=== PATIENT | female | born 1950 | race African-American/Black ===

== ENCOUNTER → 2017-01-05 | Outpatient (CLI) | payer OTHER ==
[~2017-01-05] MED LIST: ALLERGY RELIEF10 M5 PO; AMLODIPINE BESY10 MG PO; ASPIR 8181 MG PO; ATIVAN0.5 MG PO; CALCIUM 500 +1 EAC5 PO; IRON325 PO; PRAVACHOL40 MG PO; PROTONIX40 M4 PO; TRAZODONE 150150 M1 PO
--- NOTE | ~2017-01-05 | 2DMMODE ---
[facility] [place] [employer] [place] [address] 2 D/M-MODE ECHOCARDIOGRAM Name: BONNIE CREWSOD Room #: REG [facility]#: [id number] Admission: 01/05/17 Attend Phys: Issac Layton MD Discharge: Date of : 46 Date of Service: 01/05/17 1543 Report #: [id number] THIS REPORT FOR: //name// APPROVED REPORT EXAM: Comprehensive 2D, Doppler, and color-flow Echocardiogram Patient Location: Out-Patient Blood Pressure: 160/88 mmHg HR: 64 bpm Other Information Study Quality: Adequate Indications Hypertension/HDD PPM. 2D Dimensions RVDd: 35.33 mm LVEF(%): 50.84 (>50%) IVSd: 13.50 (7-11mm) LVOT Diam: 16.79 (18-24mm) LVDd: 40.30 mm PWd: 13.31 (7-11mm) Ascending Aorta: 26.59 mm LVDs: 30.01 (25-40mm) IVC: 16.00 mm Aortic Root: 25.00 mm Morton's LVEF: 50.84 % Volumes Left Atrial Volume (Systole) Single Plane 4CH: 56.70 mL Single Plane 2CH: 38.77 mL LA ESV Index: 28.00 mL/m2 Aortic Valve AoV Peak Hossein.: 1.19 m/s AO Peak Gr.: 5.65 mmHg LV Max P.32 mmHg LV Max: 1.04 m/s Mitral Valve MV PHT: 79.93 ms MV E Max Hossein.: 0.46 m/s E/A Ratio: 0.5 MV A Hossein.: 0.91 m/s MV Decel. Time: 275.63 ms Pulmonary Valve [facility] [address] [address] 2 D/M-MODE ECHOCARDIOGRAM Name: BONNIE CREWS [place] Room #: REG [facility]#: [id number] Admission: 01/05/17 Attend Phys: Issac Layton MD Discharge: Date of : 46 Date of Service: 01/05/17 1543 Report #: [id number] PV Peak Hossein.: 1.11 m/s PV Peak Gr.: 4.94 mmHg Tricuspid Valve RAP Estimate: 5.00 mmHg Left Ventricle The left ventricle is normal size. There is normal LV segmental wall motion. There is normal left ventricular wall thickness. Left ventricular systolic function is normal. LVEF is 55-60%. Grade I - abnormal relaxation pattern. Right Ventricle The right ventricle is normal size. The right ventricular systolic function is normal. Atria The left atrium size is normal. The right atrium size is normal. Aortic Valve The aortic valve is normal in structure. No aortic regurgitation is present. There is no aortic valvular stenosis. Mitral Valve The mitral valve is normal in structure. There is no mitral valve regurgitation noted. Tricuspid Valve The tricuspid valve is normal in structure. There is no tricuspid valve regurgitation noted. Pulmonic Valve The pulmonary valve is normal in structure. There is no pulmonic valvular regurgitation. Great Vessels The aortic root is normal in size. IVC is normal in size and collapses >50% with inspiration. Pericardium There is no pericardial effusion. <Conclusion> The left ventricle is normal size. Left ventricular systolic function is normal. The right ventricle is normal size. [facility] [address] [employer] [place] [address] 2 D/M-MODE ECHOCARDIOGRAM Name: CREWSBONNIE [place] [id number] Admission: 01/05/17 Attend Phys: Issac Layton MD Discharge: Date of : 46 Date of Service: 01/05/171542 Report #: [id number] The left atrium size is normal. The aortic valve is normal in structure. The mitral valve is normal in structure. There is no pericardial effusion. <ELECTRONICALLY SIGNED> By: Issac Layton MD 01/05/17 1543 42 42 Issac Layton MD /INF
== END ==
LOC: CV 08:25
DX: I10 Essential (primary) hypertension (principal); Z95.0 Presence of cardiac pacemaker

== ENCOUNTER → 2019-03-14 | Outpatient (CLI) | payer OTHER ==
[~2019-03-14] MED LIST changes: +BELVIQ10 MG PO; +COZAAR 50 MG TA50 M2 PO
--- NOTE | 2019-03-14 15:36 | 2DMMODE ---
[facility] [employer] [place] [address] 2 D/M-MODE ECHOCARDIOGRAM Name: BONNIE CREWSOD Room #: REG [facility]#: [id number] ������������� Admission: 03/14/19 ������������� Attend Phys: Issac Layton MD Discharge: ��� ������������� ��� Date of : 46 Date of Service: 03/14/19 1535 �� Report #: [id number] �������� ��������������������������������������������[id number] THIS REPORT FOR: //name// APPROVED REPORT Study performed: 03/14/2019 15:02:54 EXAM: Comprehensive 2D, Doppler, and color-flow Echocardiogram Patient Location: Out-Patient Status: routine BSA: 1.87 HR: 61 bpm BP: 110/64 mmHg Rhythm: NSR Other Information Study Quality: Adequate Indications CAD Hx: Stent, PPM, HTN. 2D Dimensions RVDd: 36.60 mm IVSd: 12.45 (7-11mm) LVOT Diam: 19.46 (18-24mm) LVDd: 35.51 mm PWd: 11.39 (7-11mm) Ascending Ao: 31.01 (22-36mm) LVDs: 22.99 (25-40mm) Aortic Root: 27.07 mm Volumes Left Atrial Volume (Systole) Single Plane 4CH: 28.97 mL Single Plane 2CH: 26.98 mL LA ESV Index: 17.00 mL/m2 Aortic Valve AoV Peak Hossein.: 1.22 m/s AO Peak Gr.: 5.99 mmHg LVOT Max P.07 mmHg LVOT Max V: 1.01 m/s EV Vmax: 2.45 cm2 Mitral Valve E/A Ratio: 0.7 MV Decel. Time: 260.02 ms [facility] [address] [place] [address] 2 D/M-MODE ECHOCARDIOGRAM Name: BONNIE CREWS Room #: REG [facility]#: [id number] ������������� Admission: 03/14/19 ������������� Attend Phys: Issac Layton MD Discharge: ��� ������������� ��� Date of : 46 Date of Service: 03/14/19 1535 �� Report #: [id number] �������� ��������������������������������������������[id number] MV E Max Hossein.: 0.47 m/s MV A Hossein.: 0.70 m/s MV PHT: 75.41 ms IVRT: 86.51 ms Pulmonary Valve PV Peak Hossein.: 0.66 m/s PV Peak Gr.: 1.76 mmHg Tricuspid Valve TR Peak Hossein.: 2.22 m/s RAP Estimate: 5.00 mmHg TR Peak Gr.: 19.64 mmHg PA Pressure: 25.00 mmHg Left Ventricle The left ventricle is normal size. Mild concentric left ventricular hypertrophy. Left ventricular systolic function is normal. LVEF is 50-55%. Mild diastolic dysfunction is present (impaired relaxation pattern). Right Ventricle The right ventricle is normal size. The right ventricular systolic function is normal. Pacemaker lead is present in the right ventricle. Atria The left atrium size is normal. The right atrium size is normal. Aortic Valve The aortic valve leaflets are not well visualized. No aortic regurgitation is present. There is no aortic valvular stenosis. Mitral Valve Mitral valve leaflets are mildly thickened. Trace mitral regurgitation. Tricuspid Valve The tricuspid valve is normal in structure. Mild tricuspid regurgitation. Estimated PAP is 25-30mmHg. Pulmonic Valve The pulmonary valve is normal in structure. Trace pulmonic regurgitation. Great Vessels The aortic root is normal in size. The ascending aorta is normal in [facility] [address] [place] [address] 2 D/M-MODE ECHOCARDIOGRAM Name: BONNIE CERWS [place] Room #: REG [facility]#: [id number] ������������� Admission: 03/14/19 ������������� Attend Phys: Issac Layton MD Discharge: ��� ������������� ��� Date of : 46 Date of Service: 03/14/19 1535 �� Report #: [id number] �������� ��������������������������������������������[id number] size. IVC is normal in size and collapses >50% with inspiration. Pericardium There is no pericardial effusion. <Conclusion> The left ventricle is normal size. Mild concentric left ventricular hypertrophy. Left ventricular systolic function is normal. Mild diastolic dysfunction is present (impaired relaxation pattern). The right ventricle is normal size. Pacemaker lead is present in the right ventricle. The left atrium size is normal. The aortic valve leaflets are not well visualized. Mitral valve leaflets are mildly thickened. Trace mitral regurgitation. Mild tricuspid regurgitation. Estimated PAP is 25-30mmHg. ��������������������������������������������� <ELECTRONICALLY SIGNED> ���������������������������������������� By: Issac Layton MD ��������������������������������������������� 03/14/19 1535 1535 1535 Issac Layton MD /INF
== END ==
LOC: CV 07:39
DX: I07.1 Rheumatic tricuspid insufficiency (principal); I25.10 Atherosclerotic heart disease of native coronary artery without angina pectoris; I10 Essential (primary) hypertension; Z95.0 Presence of cardiac pacemaker; Z95.828 Presence of other vascular implants and grafts

== ENCOUNTER → 2019-10-22 | Outpatient (CLI) | payer OTHER | LOC: SJCVC 08:33 | DX: I45.4 Nonspecific intraventricular block (principal); R94.31 Abnormal electrocardiogram [ECG] [EKG]; I10 Essential (primary) hypertension; I25.10 Atherosclerotic heart disease of native coronary artery without angina pectoris; I49.5 Sick sinus syndrome; E78.00 Pure hypercholesterolemia, unspecified; K21.9 Gastro-esophageal reflux disease without esophagitis; I73.9 Peripheral vascular disease, unspecified; Z79.82 Long term (current) use of aspirin; Z79.899 Other long term (current) drug therapy; Z95.0 Presence of cardiac pacemaker ==

== ENCOUNTER → 2020-04-21 | Outpatient (CLI) | payer OTHER | LOC: SJCVCIMAG 08:32 | PROVIDERS: ATTEND Internal Medicine Cardiovascular Disease | DX: I25.10 Atherosclerotic heart disease of native coronary artery without angina pectoris (principal); I49.5 Sick sinus syndrome; I10 Essential (primary) hypertension; E78.00 Pure hypercholesterolemia, unspecified; Z95.0 Presence of cardiac pacemaker; Z79.899 Other long term (current) drug therapy; Z87.891 Personal history of nicotine dependence ==

== ENCOUNTER → 2020-11-05 | Outpatient (CLI) | payer OTHER | LOC: ULTRA 08:59 | PROVIDERS: ATTEND Internal Medicine Gastroenterology | DX: K80.80 Other cholelithiasis without obstruction (principal); R63.4 Abnormal weight loss; R93.5 Abnormal findings on diagnostic imaging of other abdominal regions, including retroperitoneum ==

== ENCOUNTER → 2020-11-20 | Outpatient (CLI) | payer OTHER ==
[~2020-11-20] MED LIST changes: +CALCIUM + VITA1 EACH PO; +CARVEDILOL6.25 M1 PO; +COLACE100 MG PO; +DESYREL150 MG PO; +FOSAMAX 70 MG T70 MG PO; +HYDROCHLOROTHIA25 M2 PO; +LORAZEPAM 1 MG T1 MG PO; +MICARDIS 80 MG80 MG PO; -TRAZODONE 150150 M1 PO; +ZANAFLEX2 M1 PO; +ZINC SULFATE220 MG PO
== END ==
LOC: LAB 10:42
PROVIDERS: ATTEND Surgery
DX: Z01.812 Encounter for preprocedural laboratory examination (principal); Z20.822 Contact with and (suspected) exposure to COVID-19

== ENCOUNTER 2020-11-25 06:17 | Day surgery (SDC) | payer OTHER ==
[~2020-11-25] VITALS: Ht 162.6 cm; Wt 73.9 kg
[2020-11-25 07:43] LABS: CALCIUM 8.8 mg/dL (8.5-10.1); CREATININE 1.3 mg/dL (0.6-1.0); POTASSIUM 4.3 mmol/L (3.5-5.1)
[2020-11-25 07:49] VITALS: BP 115/63
[2020-11-25] MEDS ORDERED: HYDROCODON-ACE1 EAC7 PO (09:11)
[2020-11-25 09:53] VITALS: BP 115/63
== END 2020-11-25 10:55 | disposition home or self-care (01) ==
LOC: OR 06:17 → TBA 06:19 → OR 09:19
PROVIDERS: ATTEND Surgery
DX: K80.60 Calculus of gallbladder and bile duct with cholecystitis, unspecified, without obstruction (principal); I10 Essential (primary) hypertension; G47.30 Sleep apnea, unspecified; E78.00 Pure hypercholesterolemia, unspecified; I49.5 Sick sinus syndrome; Z95.0 Presence of cardiac pacemaker; Z87.891 Personal history of nicotine dependence; Z90.710 Acquired absence of both cervix and uterus; Z98.890 Other specified postprocedural states; Z79.899 Other long term (current) drug therapy
CPT/HCPCS: 50010; 50101; 62110; 62900; 65129; 65130; 65131; 70005

== ENCOUNTER → 2021-06-24 | Outpatient (CLI) | payer OTHER ==
[~2021-06-24] MED LIST changes: +HYDROCODON-ACE1 EAC7 PO
== END ==
LOC: MRI 09:08
PROVIDERS: ATTEND Psychiatry & Neurology Neuromuscular Medicine
DX: J32.0 Chronic maxillary sinusitis (principal); I49.5 Sick sinus syndrome; R41.3 Other amnesia

== ENCOUNTER → 2021-07-15 | Outpatient (CLI) | payer OTHER | LOC: SJCVCIMAG 08:49 → SJCVC 08:49 | PROVIDERS: ATTEND Internal Medicine Cardiovascular Disease | DX: I45.89 Other specified conduction disorders (principal); I51.89 Other ill-defined heart diseases; I10 Essential (primary) hypertension; I25.10 Atherosclerotic heart disease of native coronary artery without angina pectoris; E78.00 Pure hypercholesterolemia, unspecified; R06.00 Dyspnea, unspecified; Z79.82 Long term (current) use of aspirin; Z79.899 Other long term (current) drug therapy; G47.33 Obstructive sleep apnea (adult) (pediatric); Z82.49 Family history of ischemic heart disease and other diseases of the circulatory system; Z95.0 Presence of cardiac pacemaker; Z87.891 Personal history of nicotine dependence; Z72.89 Other problems related to lifestyle ==

== ENCOUNTER → 2021-07-29 | Outpatient (CLI) | payer OTHER | LOC: SJCVCIMAG 08:14 | PROVIDERS: ATTEND Internal Medicine Cardiovascular Disease | DX: I65.23 Occlusion and stenosis of bilateral carotid arteries (principal); I70.8 Atherosclerosis of other arteries; I73.9 Peripheral vascular disease, unspecified; I25.10 Atherosclerotic heart disease of native coronary artery without angina pectoris; E78.5 Hyperlipidemia, unspecified; I10 Essential (primary) hypertension; G47.33 Obstructive sleep apnea (adult) (pediatric); Z95.0 Presence of cardiac pacemaker; Z87.891 Personal history of nicotine dependence; Z72.89 Other problems related to lifestyle; Z79.82 Long term (current) use of aspirin; Z79.899 Other long term (current) drug therapy ==